=== PATIENT | female | born 1985 | race Caucasian/White ===

== ENCOUNTER 2017-09-18 10:32 | Emergency (ER) | payer MEDICAID ==
[~2017-09-18] VITALS: Wt 81.8 kg
[~2017-09-18 10:32] MED LIST: DIAZ-90 PO; NAPR-260 PO
--- NOTE | 2017-09-18 12:16 | ERD ---
ER Documentation Chief Complaint Chief Complaint l. ear plugged up HPI 31-year-old female previously healthy, presents to the emergency department complaining of bilateral ear discomfort associated with decreased hearing and plugging sensation. Denies fevers, no ear pain, no chills no foreign body. She tried some cerumen softeners at home without results. ROS SYSTEMIC symptoms: no fever, chills, no night sweats, no weight loss EYE symptoms: No blurred vision, no eye discharge OTOLARYNGEAL symptoms: No hearing loss. No ear pain, no sore throat CARDIOVASCULAR symptoms: No chest pain or discomfort, no palpitations. PULMONARY symptoms: No dyspnea, no cough, no wheezing. GASTROINTESTINAL symptoms: No abdominal pain, no nausea, no vomiting, no diarrhea MUSCULOSKELETAL symptoms: No arthralgias, no muscle aches. NEUROLOGY symptoms: No confusion, no syncope, no numbness or tingling. SKIN no rashes Allergies Allergies: Coded Allergies: No Known Allergy (Unverified , 09/18/17) PMhx/Soc History of Surgery: No Anesthesia Reaction: No Hx Neurological Disorder: No Hx Respiratory Disorders: No Hx Cardiac Disorders: No Hx Psychiatric Problems: No Hx Miscellaneous Medical Probl: No Hx Alcohol Use: No Hx Substance Use: No Hx Tobacco Use: No Physical Exam Vitals Vital Signs Date Time Temp Pulse Resp B/P Pulse Ox O2 Delivery O2 Flow Rate FiO2 09/18/17 10:34 98.0 80 20 136/84 100 Physical Exam Patient is in no acute distress, vital signs stable. Alert and fully oriented. EYES: PERRLA, EOMI, Sclera and conjunctiva appear normal. EARS: Bilateral cerumen impaction noticed. THROAT: Normal oropharynx. NECK: Supple, No lymphadenopathy. Full ROM without pain or tenderness. HEART: RRR, no rubs, murmurs, clicks or gallops. LUNGS: Clear to auscultation. ABDOMEN: Soft, non-tender without masses or hepatosplenomegaly. Procedures/MDM 31y/o female patient is a healthy, presents to the ED c/o bilateral ear fullness for 7 days. Vital signs stable, Physical exam consistent with a cerumen impaction. Differential diagnosis include but not limited to: Otitis, dermatitis, foreign body. No suspicion for malignant otitis, cholesteatoma. Physical examination and clinical presentation consistent most likely with bilateral cerumen impaction. During the ED course the patient received an ear lavage performed by EMT successfully removing abundant cerumen. Clinical impression discussed with shunt who agrees with management. The patient is stable to be treated outpatient and will be discharged home general recommendations for cerumen impaction If symptoms persist, worsen or new symptoms develop, then patient is instructed to follow-up with the primary care provider. If the patient is unable to see the primary care provider, then return to the ED immediately. Departure Diagnosis: Primary Impression: Impacted cerumen, bilateral Condition: Stable Additional Instructions: Muchas lisa por [facility] para heard servicio. Esperamos que en heard visita a la erick de emergencia heard problema medico haya sido solucionado y que se sienta mucho mejor. Para estar seguros que heard mejoria sigue en proceso, le pedimos el favor de hacer maureen ilya de seguimiento medico con heard doctor primario en los proximos 2-4 love. Lleve con usted estos documentos y las medicinas recetadas. Si juan jose sintomas empeoran y no puede darryl a heard doctor, por favor regrese a erick de emergencia. En michelle que usted no tenga un mdico de atencin primaria: Llame al mdico o clnica comunitaria de referencia que aparece abajo phillip las horas de consultorio para hacer maureen ilya para que le vean. CLINICAS: [facility] [phone] [facility] [phone] [facility] [phone] [facility] [phone] [address] [facility] [phone] [address] [facility]. [phone] MATT YBARRA MD Sep 18, 2017 12:16
--- NOTE | 2017-09-18 12:16 | ERD ---
ER Documentation Chief Complaint Chief Complaint l. ear plugged up HPI 31-year-old female previously healthy, presents to the emergency department complaining of bilateral ear discomfort associated with decreased hearing and plugging sensation. Denies fevers, no ear pain, no chills no foreign body. She tried some cerumen softeners at home without results. ROS SYSTEMIC symptoms: no fever, chills, no night sweats, no weight loss EYE symptoms: No blurred vision, no eye discharge OTOLARYNGEAL symptoms: No hearing loss. No ear pain, no sore throat CARDIOVASCULAR symptoms: No chest pain or discomfort, no palpitations. PULMONARY symptoms: No dyspnea, no cough, no wheezing. GASTROINTESTINAL symptoms: No abdominal pain, no nausea, no vomiting, no diarrhea MUSCULOSKELETAL symptoms: No arthralgias, no muscle aches. NEUROLOGY symptoms: No confusion, no syncope, no numbness or tingling. SKIN no rashes Allergies Allergies: Coded Allergies: No Known Allergy (Unverified , 09/18/17) PMhx/Soc History of Surgery: No Anesthesia Reaction: No Hx Neurological Disorder: No Hx Respiratory Disorders: No Hx Cardiac Disorders: No Hx Psychiatric Problems: No Hx Miscellaneous Medical Probl: No Hx Alcohol Use: No Hx Substance Use: No Hx Tobacco Use: No Physical Exam Vitals Vital Signs Date Time Temp Pulse Resp B/P Pulse Ox O2 Delivery O2 Flow Rate FiO2 09/18/17 10:34 98.0 80 20 136/84 100 Physical Exam Patient is in no acute distress, vital signs stable. Alert and fully oriented. EYES: PERRLA, EOMI, Sclera and conjunctiva appear normal. EARS: Bilateral cerumen impaction noticed. THROAT: Normal oropharynx. NECK: Supple, No lymphadenopathy. Full ROM without pain or tenderness. HEART: RRR, no rubs, murmurs, clicks or gallops. LUNGS: Clear to auscultation. ABDOMEN: Soft, non-tender without masses or hepatosplenomegaly. Procedures/MDM 31y/o female patient is a healthy, presents to the ED c/o bilateral ear fullness for 7 days. Vital signs stable, Physical exam consistent with a cerumen impaction. Differential diagnosis include but not limited to: Otitis, dermatitis, foreign body. No suspicion for malignant otitis, cholesteatoma. Physical examination and clinical presentation consistent most likely with bilateral cerumen impaction. During the ED course the patient received an ear lavage performed by EMT successfully removing abundant cerumen. Clinical impression discussed with shunt who agrees with management. The patient is stable to be treated outpatient and will be discharged home general recommendations for cerumen impaction If symptoms persist, worsen or new symptoms develop, then patient is instructed to follow-up with the primary care provider. If the patient is unable to see the primary care provider, then return to the ED immediately. Departure Diagnosis: Primary Impression: Impacted cerumen, bilateral Condition: Stable Additional Instructions: Muchas lisa por [facility] para heard servicio. Esperamos que en ehard visita a la erick de emergencia heard problema medico haya sido solucionado y que se sienta mucho mejor. Para estar seguros que heard mejoria sigue en proceso, le pedimos el favor de hacer maureen ilya de seguimiento medico con heard doctor primario en los proximos 2-4 love. Lleve con usted estos documentos y las medicinas recetadas. Si juan jose sintomas empeoran y no puede darryl a heard doctor, por favor regrese a erick de emergencia. En michelle que usted no tenga un mdico de atencin primaria: Llame al mdico o clnica comunitaria de referencia que aparece abajo phillip las horas de consultorio para hacer maureen ilya para que le vean. CLINICAS: [facility] [phone] [facility] [phone] [facility] [phone] [facility] [phone] [address] [facility] [phone] 68[address] [facility]. [phone] MATT YBARRA MD Sep 18, 2017 12:16
--- NOTE | 2017-09-18 12:16 | ERD ---
ER Documentation Chief Complaint Chief Complaint l. ear plugged up HPI 31-year-old female previously healthy, presents to the emergency department complaining of bilateral ear discomfort associated with decreased hearing and plugging sensation. Denies fevers, no ear pain, no chills no foreign body. She tried some cerumen softeners at home without results. ROS SYSTEMIC symptoms: no fever, chills, no night sweats, no weight loss EYE symptoms: No blurred vision, no eye discharge OTOLARYNGEAL symptoms: No hearing loss. No ear pain, no sore throat CARDIOVASCULAR symptoms: No chest pain or discomfort, no palpitations. PULMONARY symptoms: No dyspnea, no cough, no wheezing. GASTROINTESTINAL symptoms: No abdominal pain, no nausea, no vomiting, no diarrhea MUSCULOSKELETAL symptoms: No arthralgias, no muscle aches. NEUROLOGY symptoms: No confusion, no syncope, no numbness or tingling. SKIN no rashes Allergies Allergies: Coded Allergies: No Known Allergy (Unverified , 09/18/17) PMhx/Soc History of Surgery: No Anesthesia Reaction: No Hx Neurological Disorder: No Hx Respiratory Disorders: No Hx Cardiac Disorders: No Hx Psychiatric Problems: No Hx Miscellaneous Medical Probl: No Hx Alcohol Use: No Hx Substance Use: No Hx Tobacco Use: No Physical Exam Vitals Vital Signs Date Time Temp Pulse Resp B/P Pulse Ox O2 Delivery O2 Flow Rate FiO2 09/18/17 10:34 98.0 80 20 136/84 100 Physical Exam Patient is in no acute distress, vital signs stable. Alert and fully oriented. EYES: PERRLA, EOMI, Sclera and conjunctiva appear normal. EARS: Bilateral cerumen impaction noticed. THROAT: Normal oropharynx. NECK: Supple, No lymphadenopathy. Full ROM without pain or tenderness. HEART: RRR, no rubs, murmurs, clicks or gallops. LUNGS: Clear to auscultation. ABDOMEN: Soft, non-tender without masses or hepatosplenomegaly. Procedures/MDM 31y/o female patient is a healthy, presents to the ED c/o bilateral ear fullness for 7 days. Vital signs stable, Physical exam consistent with a cerumen impaction. Differential diagnosis include but not limited to: Otitis, dermatitis, foreign body. No suspicion for malignant otitis, cholesteatoma. Physical examination and clinical presentation consistent most likely with bilateral cerumen impaction. During the ED course the patient received an ear lavage performed by EMT successfully removing abundant cerumen. Clinical impression discussed with shunt who agrees with management. The patient is stable to be treated outpatient and will be discharged home general recommendations for cerumen impaction If symptoms persist, worsen or new symptoms develop, then patient is instructed to follow-up with the primary care provider. If the patient is unable to see the primary care provider, then return to the ED immediately. Departure Diagnosis: Primary Impression: Impacted cerumen, bilateral Condition: Stable Additional Instructions: Muchas lisa por [facility] para heard servicio. Esperamos que en heard visita a la erick de emergencia heard problema medico haya sido solucionado y que se sienta mucho mejor. Para estar seguros que heard mejoria sigue en proceso, le pedimos el favor de hacer maureen ilya de seguimiento medico con heard doctor primario en los proximos 2-4 love. Lleve con usted estos documentos y las medicinas recetadas. Si juan jose sintomas empeoran y no puede darryl a heard doctor, por favor regrese a erick de emergencia. En michelle que usted no tenga un mdico de atencin primaria: Llame al mdico o clnica comunitaria de referencia que aparece abajo phillip las horas de consultorio para hacer maureen ilya para que le vean. CLINICAS: [facility] [phone] [facility] [phone] [facility] [phone] [facility] [phone] [facility] [phone] [address] [facility]. [phone] MATT YBARRA MD Sep 18, 2017 12:16
== END 2017-09-18 13:51 | disposition home or self-care (01) ==
LOC: FTE 10:32
DX: H61.23 Impacted cerumen, bilateral (principal)
CPT/HCPCS: 69209; Z7502

== ENCOUNTER 2017-10-23 18:51 | Emergency (ER) | payer MEDICAID ==
[~2017-10-23] VITALS: Ht 170.2 cm; Wt 78.2 kg
[2017-10-23 18:55] VITALS: Ht 170.2 cm; Wt 78.2 kg
[2017-10-23] MEDS ORDERED: IBUPROFEN 800 MG TAB PO ONE (20:30)
--- NOTE | 2017-10-23 20:53 | RADRPT ---
PROCEDURE: XR Chest. CLINICAL INDICATION: Chest pain. TECHNIQUE: Single frontal view of the chest was obtained COMPARISON: None FINDINGS: The heart and mediastinum are within normal limits. The lungs are clear. There is no pleural effusion or pneumothorax. The osseous structures are unremarkable. IMPRESSION: 1. No acute cardiopulmonary disease. RPTAT:AAJJ Physician Cookie Date Time Electronically viewed and signed by Ned Mauro Physician on 10/23/2017 20:52 QL/
--- NOTE | 2017-10-23 20:58 | ERD ---
ER Documentation Chief Complaint Chief Complaint chest wall pain 30 minutes ago w/ bilateral arm pain HPI This is a 31-year-old female who presents the emergency department today complaining of chest pain and pain into her left arm. States it started at 3 PM. 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 States that at night she has been having numbness in her arms when she sleeps. States she has not taken any medication for the pain. Denies any shortness of breath, prolonged travel, use of oral contraceptive pills or cigarette smoke. States that she feels better since coming to the emergency department. Denies any fevers or chills. ROS All systems reviewed and are negative except as per history of present illness. Medications Home Meds Active Scripts Acetaminophen* (Tylophen*) 500 Mg Capsule, 1 CAP PO Q6H Y for PAIN AND OR ELEVATED TEMP, #30 CAP Prov:MARY WARREN PA-C 10/23/17 Naproxen* (Naprosyn*) 500 Mg Tablet, 500 MG PO BID Y for PAIN AND/OR INFLAMMATION, #30 TAB Prov:MARY WARREN PA-C 10/23/17 Naproxen* (Naprosyn*) 500 Mg Tablet, 500 MG PO BID Y for PAIN AND/OR INFLAMMATION, #30 TAB Prov:CRISTA ETIENNE PA-C 02/01/16 Diazepam* (Valium*) 5 Mg Tablet, 5 MG PO Q8 for MUSCLE SPASMS, #10 TAB Prov:CRISTA ETIENNE PA-C 02/01/16 Allergies Allergies: Coded Allergies: No Known Allergy (Unverified , 09/18/17) PMhx/Soc Medical and Surgical Hx: pt denies Medical Hx History of Surgery: No Anesthesia Reaction: No Hx Neurological Disorder: No Hx Respiratory Disorders: No Hx Cardiac Disorders: No Hx Psychiatric Problems: No Hx Miscellaneous Medical Probl: No Hx Alcohol Use: No Hx Substance Use: No Hx Tobacco Use: No Smoking Status: Never smoker Physical Exam Vitals Vital Signs Date Time Temp Pulse Resp B/P Pulse Ox O2 Delivery O2 Flow Rate FiO2 10/23/17 18:55 97.8 71 20 130/84 100 Physical Exam Const: NAD Head: Atraumatic Eyes: Normal Conjunctiva ENT: Normal External Ears, Nose and Mouth. Neck: Full range of motion..~ No meningismus. Resp: Clear to auscultation bilaterally. Breath sounds. No wheezing. Cardio: Regular rate and rhythm, no murmurs Abd: Soft, non tender, non distended. Normal bowel sounds Skin: No petechiae or rashes Back: No midline or flank tenderness Ext: No cyanosis, or edema good pulses 2+ bilaterally. Full active range of motion lateral arms. Neur: Awake and alert Psych: Normal Mood and Affect Results 24 hrs Current Medications Medications (Trade) Dose Ordered Sig/Julia Route PRN Reason Start Time Stop Time Status Last Admin Dose Admin Ibuprofen (Motrin) 800 mg ONCE ONCE PO 10/23/17 20:30 10/23/17 20:31 DC 10/23/17 20:32 DIAGNOSTIC IMAGING REPORT Patient: JS GOODEN : 1985 Age: 31 Sex: F MR #: [id number] DOS: 10/23/17 0000 Ordering MD: MARY WARREN PA-C Location: [facility] Room/Bed: PROCEDURE: XR Chest. CLINICAL INDICATION: Chest pain. TECHNIQUE: Single frontal view of the chest was obtained COMPARISON: None FINDINGS: The heart and mediastinum are within normal limits. The lungs are clear. There is no pleural effusion or pneumothorax. The osseous structures are unremarkable. IMPRESSION: 1. No acute cardiopulmonary disease. RPTAT:AAJJ Physician Cookie Date Time Electronically viewed and signed by Ned Mauro Physician on 10/23/2017 20:52 QL/ CC: MARY WARREN PA-C Procedures/[facility] This a 31-year-old female presents emergency department today complaining of chest pain that radiated to her left arm that started today while she was at work. Patient reported symptomatic improvement since coming to the emergency room. I discussed the patient with Dr. Tamayo and he recommended a chest x-ray and EKG. EKG read and interpreted by Dr. Tamayo rate [address] elevation. No QT prolongation. Normal sinus rhythm. Chest x-ray shows no acute cardiopulmonary disease. Lungs are clear. Low suspicion for pneumonia, PE, abscess, pleural effusion, pneumothorax. Symptoms at this time is consistent with chest pain. She is afebrile and otherwise well-appearing. She is not tachycardic. Her oxygen saturation is 100 %. She has not had any foreign or prolonged travel. She has no cough. She denied cigarette smoker use oral contraceptive pills. Have low suspicion for PE , abscess, pleural effusion or pneumothorax.I have low suspicion for acute coronary syndrome. Patient was given here in the emergency department and she reported feeling better. I will give her prescription for Naprosyn and Tylenol for home. At this time the patient is stable for discharge and outpatient management. Patient should follow up with their PCP in the next 1-2 days. They may return to the emergency department sooner for any persistent or worsening of symptoms. Patient understood and agreed with the plan. Departure Diagnosis: Primary Impression: Chest pain Chest pain type: unspecified Qualified Code: R07.9 - Chest pain, unspecified type Condition: MARY Murdock PA-C Oct 23, 2017 20:58
[2017-10-23] MEDS ORDERED: ACET500C5 PO (20:59)
[2017-10-23] MEDS ORDERED: NAPR-260 PO (20:59)
[2017-10-23 21:10] VITALS: BP 121/71; PULSE 72; RESP 20; TEMP 98.1
== END 2017-10-23 21:11 | disposition home or self-care (01) ==
LOC: FTE 18:51
DX: R07.89 Other chest pain (principal)
CPT/HCPCS: 71010; 93005; Z7502; Z7610

== ENCOUNTER 2017-11-12 16:02 | Emergency (ER) | END 2017-11-12 19:28 | disposition home or self-care (01) ==

== ENCOUNTER 2017-11-27 09:14 | Emergency (ER) | END 2017-11-27 13:27 | disposition home or self-care (01) ==

== ENCOUNTER 2018-01-15 13:18 | Emergency (ER) | END 2018-01-15 17:57 | disposition home or self-care (01) ==

== ENCOUNTER 2018-07-07 08:37 | Emergency (ER) | END 2018-07-07 11:29 | disposition home or self-care (01) ==